=== PATIENT | male | born 1960 | race Caucasian/White ===

== ENCOUNTER → 2023-09-21 16:32 | Outpatient (REF) | payer OTHER, SELFPAY | LOC: HWRAD 16:32 | PROVIDERS: ATTENDING PHYSICIAN Physician Assistant Medical; FAMILY PHYSICIAN Family Medicine | DX: M54.50 Low back pain, unspecified (principal) | CPT/HCPCS: 72110 ==

== ENCOUNTER → 2024-01-29 06:50 | Outpatient (REF) | payer OTHER, SELFPAY | LOC: HWRAD 06:50 | PROVIDERS: ATTENDING PHYSICIAN Nurse Practitioner Family | DX: R22.41 Localized swelling, mass and lump, right lower limb (principal) | CPT/HCPCS: 76882 ==

== ENCOUNTER → 2024-08-23 07:25 | Outpatient (REF) | payer OTHER, SELFPAY | LOC: EMG 07:25 | PROVIDERS: ATTENDING PHYSICIAN Orthopaedic Surgery; FAMILY PHYSICIAN Family Medicine | DX: R20.0 Anesthesia of skin (principal) | CPT/HCPCS: 95886; 95911 ==

== ENCOUNTER → 2024-09-16 13:54 | Outpatient (REF) | payer OTHER, SELFPAY | LOC: HWRAD 13:54 | PROVIDERS: ATTENDING PHYSICIAN Physician Assistant Medical; FAMILY PHYSICIAN Family Medicine | DX: N45.1 Epididymitis (principal) | CPT/HCPCS: 76870; 93976 ==

== ENCOUNTER → 2024-11-01 06:50 | Outpatient (REF) | payer OTHER, SELFPAY | LOC: RAD 06:50 | PROVIDERS: ATTENDING PHYSICIAN Physician Assistant Medical; FAMILY PHYSICIAN Family Medicine | DX: R10.31 Right lower quadrant pain (principal); R59.0 Localized enlarged lymph nodes | CPT/HCPCS: 74177; Q9967 ==

== ENCOUNTER 2024-11-08 06:17 | Day surgery (SDC) | payer OTHER, SELFPAY | END 2024-11-08 12:03 | disposition home or self-care (01) | LOC: GI 06:17 | PROVIDERS: ATTENDING PHYSICIAN Specialist; FAMILY PHYSICIAN Internal Medicine Rheumatology | DX: Z12.11 Encounter for screening for malignant neoplasm of colon (principal); D12.4 Benign neoplasm of descending colon; Z86.0100 Personal history of colon polyps, unspecified; Z98.0 Intestinal bypass and anastomosis status | CPT/HCPCS: 45385; 88305 ==

== ENCOUNTER → 2025-08-01 17:05 | Outpatient (REF) | payer OTHER, SELFPAY | LOC: CLAB 17:05 | PROVIDERS: ATTENDING PHYSICIAN Physician Assistant | DX: J32.9 Chronic sinusitis, unspecified (principal) | CPT/HCPCS: 87070; 87147; 87186; 87205 ==